=== PATIENT | male | born 1945 ===

== ENCOUNTER 2020-07-22 15:38 | Inpatient (IN) ==
[2020-07-23] MEDS ORDERED: Ipratropium 1 PUFF INHALER IH PRN (17:36)
[2020-07-23] MEDS ORDERED: Acetaminophen 325 MG TABLET PO PRN (17:36)
[2020-07-23] MEDS ORDERED: Ondansetron 4 MG/2 ML VIAL IVP PRN (17:38)
[2020-07-23] MEDS: QUEtiapine Fumarate 25 MG TABLET PO SCH (23:00)
[2020-07-23] MEDS: polyethylene glycoL 3350 17 GM POWD.PACK PO SCH (23:00)
[2020-07-24] MEDS ORDERED: Naloxone 0.4 MG/ML INJ IVP PRN (00:01)
[2020-07-24] MEDS: Melatonin 3 MG TABLET PO PRN ×2 (00:18→22:07)
[2020-07-24] MEDS: *HR* HYDROcodone/Acet 5/325 mg TABLET PO PRN ×2 (00:18→22:07)
[2020-07-24] MEDS: *HR* Enoxaparin 40 MG/0.4 ML SYRINGE SQ SCH (06:52)
[2020-07-24 07:30] LABS: Hemoglobin 9.2 g/dL (12.9-16.9); Mean Corpuscular HGB Conc 32.9 g/dL (31.6-35.5); Mean Corpuscular Hemoglobin 31.3 pg (28.0-33.3); Mean Corpuscular Volume 95.2 fL (83.0-100.0); Mean Platelet Volume 10.8 fL (9.4-12.4); Platelet Count 188 K/mcL (140-400); Red Blood Count 2.94 M/mcL (4.19-5.50); Red Cell Distribution Width 13.1 % (11.5-14.5); White Blood Count 5.7 K/mcL (4.3-11.1)
[2020-07-24 07:52] LABS: Calcium 8.6 mg/dL (8.6-10.3); Magnesium 2.2 mg/dL (1.6-2.6); Potassium 3.7 mEq/L (3.5-5.1)
[2020-07-24] MEDS ORDERED: Lactulose Oral Soln 20 GM/30 ML UDC PO PRN (08:00)
[2020-07-24] MEDS: PARoxetine 20 MG TABLET PO SCH (09:13)
[2020-07-24] MEDS: Aspirin 81 MG TAB.CHEW PO SCH (09:13)
[2020-07-24] MEDS: Sennosides/Docusate Sodium TABLET PO SCH ×2 (09:14→22:10)
[2020-07-24] MEDS: polyethylene glycoL 3350 17 GM POWD.PACK PO SCH (09:14)
[2020-07-24] MEDS: Finasteride 5 MG TABLET PO SCH (09:14)
[2020-07-24] MEDS: lisinopriL 20 MG TABLET PO SCH (09:14)
[2020-07-24] MEDS: *HR* Metformin 500 MG TABLET PO SCH ×2 (09:15→16:52)
[2020-07-24] MEDS: Dexamethasone 4 MG/ML VIAL IVP SCH (09:21)
[2020-07-24] MEDS: QUEtiapine Fumarate 25 MG TABLET PO SCH (22:07)
[2020-07-24] MEDS: levoFLOXacin 750 MG/150 ML 750 MG/150 ML BAG IVPB SCH (22:09)
[2020-07-25] MEDS: *HR* Enoxaparin 40 MG/0.4 ML SYRINGE SQ SCH (06:35)
[2020-07-25 06:43] LABS: Hematocrit 29.2 % (37.5-50.1); Hemoglobin 9.3 g/dL (12.9-16.9); Mean Corpuscular HGB Conc 31.8 g/dL (31.6-35.5); Mean Corpuscular Hemoglobin 30.7 pg (28.0-33.3); Mean Corpuscular Volume 96.4 fL (83.0-100.0); Mean Platelet Volume 10.2 fL (9.4-12.4); Platelet Count 197 K/mcL (140-400); Red Blood Count 3.03 M/mcL (4.19-5.50); Red Cell Distribution Width 13.4 % (11.5-14.5); White Blood Count 7.1 K/mcL (4.3-11.1)
[2020-07-25 07:13] LABS: Bilirubin,Total 0.5 mg/dL (0.3-1.0); Calcium 8.8 mg/dL (8.6-10.3); Magnesium 2.6 mg/dL (1.6-2.6)
[2020-07-25] MEDS: PARoxetine 20 MG TABLET PO SCH (08:55)
[2020-07-25] MEDS: Finasteride 5 MG TABLET PO SCH (08:56)
[2020-07-25] MEDS: *HR* Metformin 500 MG TABLET PO SCH ×2 (08:56→16:58)
[2020-07-25] MEDS: Aspirin 81 MG TAB.CHEW PO SCH (08:56)
[2020-07-25] MEDS: lisinopriL 20 MG TABLET PO SCH (08:56)
[2020-07-25] MEDS: Dexamethasone 4 MG/ML VIAL IVP SCH (08:56)
[2020-07-25] MEDS: Sennosides/Docusate Sodium TABLET PO SCH (08:57)
[2020-07-25] MEDS: polyethylene glycoL 3350 17 GM POWD.PACK PO SCH (08:57)
[2020-07-25] MEDS: 0.9 % Sodium Chloride 1,000 ML IVC SCH ×2 (13:02→21:06)
[2020-07-25] MEDS: *HR* HYDROcodone/Acet 5/325 mg TABLET PO PRN (21:05)
[2020-07-25] MEDS: QUEtiapine Fumarate 25 MG TABLET PO SCH (21:05)
[2020-07-25] MEDS: Melatonin 3 MG TABLET PO PRN (21:06)
[2020-07-26] MEDS: *HR* HYDROcodone/Acet 5/325 mg TABLET PO PRN ×2 (05:43→20:43)
[2020-07-26] MEDS: *HR* Enoxaparin 40 MG/0.4 ML SYRINGE SQ SCH (05:43)
[2020-07-26 07:58] LABS: Hematocrit 25.8 % (37.5-50.1); Hemoglobin 8.2 g/dL (12.9-16.9); Mean Corpuscular HGB Conc 31.8 g/dL (31.6-35.5); Mean Corpuscular Hemoglobin 30.9 pg (28.0-33.3); Mean Corpuscular Volume 97.4 fL (83.0-100.0); Mean Platelet Volume 10.4 fL (9.4-12.4); Platelet Count 165 K/mcL (140-400); Red Blood Count 2.65 M/mcL (4.19-5.50); Red Cell Distribution Width 13.4 % (11.5-14.5)
[2020-07-26 08:14] LABS: Calcium 7.8 mg/dL (8.6-10.3)
[2020-07-26] MEDS: *HR* Metformin 500 MG TABLET PO SCH ×2 (10:09→16:20)
[2020-07-26] MEDS: Finasteride 5 MG TABLET PO SCH (10:09)
[2020-07-26] MEDS: Sennosides/Docusate Sodium TABLET PO SCH ×2 (10:10→20:44)
[2020-07-26] MEDS: Aspirin 81 MG TAB.CHEW PO SCH (10:10)
[2020-07-26] MEDS: PARoxetine 20 MG TABLET PO SCH (10:10)
[2020-07-26] MEDS: Dexamethasone 4 MG/ML VIAL IVP SCH (10:12)
[2020-07-26] MEDS: QUEtiapine Fumarate 25 MG TABLET PO SCH (20:44)
[2020-07-26] MEDS: levoFLOXacin 750 MG/150 ML 750 MG/150 ML BAG IVPB SCH ×2 (20:46→23:10)
[2020-07-26] MEDS: Melatonin 3 MG TABLET PO PRN (21:21)
[2020-07-26] MEDS ORDERED: levoFLOXacin 500 MG TABLET PO ONE (22:40)
[2020-07-27] MEDS ORDERED: hydrALAZINE 25 MG TABLET PO ONE ×2 (00:23→02:21)
[2020-07-27] MEDS ORDERED: cloNIDine HCL 0.1 MG TABLET PO ONE (05:30)
[2020-07-27] MEDS: *HR* Enoxaparin 40 MG/0.4 ML SYRINGE SQ SCH (05:49)
[2020-07-27 07:10] LABS: Basophils % 0.2 %; Eosinophils # 0.1 K/mcL (0.0-0.6); Eosinophils % 1.1 %; Hematocrit 25.7 % (37.5-50.1); Hemoglobin 8.3 g/dL (12.9-16.9); Immature Granulocytes % 0.5 % (0-4); Lymphocytes # 0.5 K/mcL (0.6-4.6); Lymphocytes % 9.7 %; Mean Corpuscular HGB Conc 32.3 g/dL (31.6-35.5); Mean Corpuscular Hemoglobin 31.2 pg (28.0-33.3); Mean Corpuscular Volume 96.6 fL (83.0-100.0); Mean Platelet Volume 10.5 fL (9.4-12.4); Monocytes # 0.4 K/mcL (0.0-1.3); Monocytes % 7.6 %; Neutrophils # 4.5 K/mcL (1.6-8.9); Platelet Count 162 K/mcL (140-400); Red Blood Count 2.66 M/mcL (4.19-5.50); Red Cell Distribution Width 13.5 % (11.5-14.5); Segmented Neutrophils % 80.9 %; White Blood Count 5.5 K/mcL (4.3-11.1)
[2020-07-27 07:34] LABS: BUN/Creatinine Ratio 21 (6-26); Blood Urea Nitrogen 27 mg/dL (8-23); Calcium 7.9 mg/dL (8.6-10.3); Carbon Dioxide 28 mEq/L (23-29); Chloride 106 mEq/L (98-107); Glucose 86 mg/dL (70-105); Osmolality,Calculated 292 (280-300); Potassium 4.1 mEq/L (3.5-5.1); Sodium 139 mEq/L (136-145); eGFR For African Americans > 60 (> 60); eGFR For Non-African Americans 56 (> 60)
[2020-07-27] MEDS ORDERED: Ondansetron ODT 4 MG TAB.RAPDIS SL PRN ×2 (07:50→08:00)
[2020-07-27] MEDS ORDERED: cloNIDine HCL 0.1 MG TABLET PO PRN (08:00)
[2020-07-27] MEDS: predniSONE 20 MG TABLET PO SCH (08:31)
[2020-07-27] MEDS: *HR* Metformin 500 MG TABLET PO SCH ×2 (08:31→17:00)
[2020-07-27] MEDS: Aspirin 81 MG TAB.CHEW PO SCH (08:31)
[2020-07-27] MEDS: PARoxetine 20 MG TABLET PO SCH (08:32)
[2020-07-27] MEDS: Sennosides/Docusate Sodium TABLET PO SCH ×2 (08:32→20:29)
[2020-07-27] MEDS: Finasteride 5 MG TABLET PO SCH (08:32)
[2020-07-27] MEDS: lisinopriL 5 MG TABLET PO SCH ×2 (08:32→20:29)
[2020-07-27 09:59] LABS: % Iron Saturation 26 % (20-55); Iron 64 mcg/dL (65-175); Transferrin 175 mg/dL (203-362)
[2020-07-27 10:17] LABS: Ferritin 148 ng/mL (20-250)
[2020-07-27 10:22] LABS: Folate 15.6 ng/mL (3.0-16.0)
[2020-07-27] MEDS: *HR* HYDROcodone/Acet 5/325 mg TABLET PO PRN (20:28)
[2020-07-27] MEDS: QUEtiapine Fumarate 25 MG TABLET PO SCH (20:28)
[2020-07-27] MEDS: Melatonin 3 MG TABLET PO PRN (21:46)
[2020-07-28] MEDS: *HR* Enoxaparin 40 MG/0.4 ML SYRINGE SQ SCH (05:43)
[2020-07-28 07:52] VITALS: BP 148/91
[2020-07-28] MEDS: PARoxetine 20 MG TABLET PO SCH (08:25)
[2020-07-28] MEDS: Sennosides/Docusate Sodium TABLET PO SCH (08:25)
[2020-07-28] MEDS: lisinopriL 5 MG TABLET PO SCH (08:25)
[2020-07-28] MEDS: Aspirin 81 MG TAB.CHEW PO SCH (08:26)
[2020-07-28] MEDS: *HR* Metformin 500 MG TABLET PO SCH (08:26)
[2020-07-28] MEDS: predniSONE 20 MG TABLET PO SCH (08:26)
[2020-07-28] MEDS: Finasteride 5 MG TABLET PO SCH (08:26)
== END 2020-07-28 10:59 | disposition other institution (70) | DRG 177 ==
LOC: INPPIK 07-23 19:50
PROVIDERS: ADMIT Family Medicine; ATTEND Family Medicine

== ENCOUNTER 2020-07-28 10:43 | Inpatient (IN) ==
[2020-07-28] MEDS ORDERED: Ipratropium 1 PUFF INHALER IH PRN (13:22)
[2020-07-28] MEDS ORDERED: polyethylene glycoL 3350 17 GM POWD.PACK PO PRN (13:22)
[2020-07-28] MEDS: *HR* Metformin 500 MG TABLET PO SCH (17:16)
[2020-07-28] MEDS: QUEtiapine Fumarate 25 MG TABLET PO SCH (21:19)
[2020-07-28] MEDS: Acetaminophen 325 MG TABLET PO PRN (21:19)
[2020-07-29] MEDS ORDERED: *HR* HYDROcodone/Acet 5/325 mg TABLET PO ONE ×2 (00:25→01:00)
[2020-07-29] MEDS ORDERED: Melatonin 3 MG TABLET PO ONE (00:25)
[2020-07-29] MEDS: *HR* Enoxaparin 40 MG/0.4 ML SYRINGE SQ SCH (05:58)
[2020-07-29] MEDS ORDERED: *HR* Labetalol 20 MG/4 ML SYRINGE IVP ONE (06:39)
[2020-07-29 07:17] LABS: Basophils % 0.2 %; Eosinophils # 0.1 K/mcL (0.0-0.6); Eosinophils % 1.7 %; Hematocrit 27.6 % (37.5-50.1); Hemoglobin 8.8 g/dL (12.9-16.9); Immature Granulocytes % 0.6 % (0-4); Lymphocytes # 0.7 K/mcL (0.6-4.6); Lymphocytes % 12.6 %; Mean Corpuscular HGB Conc 31.9 g/dL (31.6-35.5); Mean Corpuscular Hemoglobin 30.8 pg (28.0-33.3); Mean Corpuscular Volume 96.5 fL (83.0-100.0); Mean Platelet Volume 11.1 fL (9.4-12.4); Monocytes # 0.4 K/mcL (0.0-1.3); Monocytes % 7.7 %; Neutrophils # 4.1 K/mcL (1.6-8.9); Platelet Count 177 K/mcL (140-400); Red Blood Count 2.86 M/mcL (4.19-5.50); Red Cell Distribution Width 13.9 % (11.5-14.5); Segmented Neutrophils % 77.2 %; White Blood Count 5.3 K/mcL (4.3-11.1)
[2020-07-29 07:24] LABS: BUN/Creatinine Ratio 18 (6-26); Blood Urea Nitrogen 22 mg/dL (8-23); Calcium 8.5 mg/dL (8.6-10.3); Carbon Dioxide 29 mEq/L (23-29); Chloride 104 mEq/L (98-107); Glucose 75 mg/dL (70-105); Osmolality,Calculated 290 (280-300); Potassium 3.9 mEq/L (3.5-5.1); Sodium 139 mEq/L (136-145); eGFR For African Americans > 60 (> 60); eGFR For Non-African Americans 58 (> 60)
[2020-07-29] MEDS: Finasteride 5 MG TABLET PO SCH (08:30)
[2020-07-29] MEDS: *HR* Metformin 500 MG TABLET PO SCH ×2 (08:31→16:28)
[2020-07-29] MEDS: PARoxetine 20 MG TABLET PO SCH (08:31)
[2020-07-29] MEDS: Aspirin 81 MG TAB.CHEW PO SCH (08:31)
[2020-07-29] MEDS ORDERED: lisinopriL 5 MG TABLET PO SCH (09:00)
[2020-07-29] MEDS: Melatonin 3 MG TABLET PO PRN (21:42)
[2020-07-29] MEDS: QUEtiapine Fumarate 25 MG TABLET PO SCH (21:42)
[2020-07-29] MEDS: lisinopriL 10 MG TABLET PO SCH (21:42)
[2020-07-29] MEDS: *HR* HYDROcodone/Acet 5/325 mg TABLET PO PRN (21:43)
[2020-07-30] MEDS: *HR* Enoxaparin 40 MG/0.4 ML SYRINGE SQ SCH (06:16)
[2020-07-30] MEDS ORDERED: Saline Nasal Spray 44 ML BOTTLE NS PRN (06:27)
[2020-07-30] MEDS: Aspirin 81 MG TAB.CHEW PO SCH (09:00)
[2020-07-30] MEDS: *HR* Metformin 500 MG TABLET PO SCH ×2 (09:00→17:12)
[2020-07-30] MEDS: lisinopriL 10 MG TABLET PO SCH ×2 (09:01→19:23)
[2020-07-30] MEDS: Finasteride 5 MG TABLET PO SCH (09:01)
[2020-07-30] MEDS: PARoxetine 20 MG TABLET PO SCH (09:01)
[2020-07-30] MEDS: QUEtiapine Fumarate 25 MG TABLET PO SCH (19:24)
[2020-07-30] MEDS: Melatonin 3 MG TABLET PO PRN (20:42)
[2020-07-30] MEDS: *HR* HYDROcodone/Acet 5/325 mg TABLET PO PRN (20:42)
[2020-07-31] MEDS: PARoxetine 20 MG TABLET PO SCH (08:58)
[2020-07-31] MEDS: Finasteride 5 MG TABLET PO SCH (08:58)
[2020-07-31] MEDS: *HR* Metformin 500 MG TABLET PO SCH ×2 (08:58→17:08)
[2020-07-31] MEDS: lisinopriL 10 MG TABLET PO SCH ×2 (08:58→20:06)
[2020-07-31] MEDS: Aspirin 81 MG TAB.CHEW PO SCH (08:58)
[2020-07-31] MEDS: *HR* Enoxaparin 40 MG/0.4 ML SYRINGE SQ SCH (08:59)
[2020-07-31] MEDS: QUEtiapine Fumarate 25 MG TABLET PO SCH (20:06)
[2020-07-31] MEDS: Melatonin 3 MG TABLET PO PRN (20:07)
[2020-07-31] MEDS: *HR* HYDROcodone/Acet 5/325 mg TABLET PO PRN (20:16)
[2020-08-01] MEDS: *HR* Enoxaparin 40 MG/0.4 ML SYRINGE SQ SCH (05:33)
[2020-08-01 07:21] LABS: Hematocrit 28.6 % (37.5-50.1); Hemoglobin 9.1 g/dL (12.9-16.9); Mean Corpuscular HGB Conc 31.8 g/dL (31.6-35.5); Mean Corpuscular Hemoglobin 31.2 pg (28.0-33.3); Mean Corpuscular Volume 97.9 fL (83.0-100.0); Platelet Count 169 K/mcL (140-400); Red Blood Count 2.92 M/mcL (4.19-5.50); Red Cell Distribution Width 14.6 % (11.5-14.5); White Blood Count 4.2 K/mcL (4.3-11.1)
[2020-08-01 07:55] LABS: BUN/Creatinine Ratio 16 (6-26); Blood Urea Nitrogen 18 mg/dL (8-23); Calcium 8.5 mg/dL (8.6-10.3); Carbon Dioxide 31 mEq/L (23-29); Chloride 102 mEq/L (98-107); Glucose 72 mg/dL (70-105); Osmolality,Calculated 286 (280-300); Potassium 3.6 mEq/L (3.5-5.1); Sodium 138 mEq/L (136-145); eGFR For African Americans > 60 (> 60); eGFR For Non-African Americans > 60 (> 60)
[2020-08-01] MEDS: Finasteride 5 MG TABLET PO SCH (09:00)
[2020-08-01] MEDS: PARoxetine 20 MG TABLET PO SCH (09:01)
[2020-08-01] MEDS: lisinopriL 10 MG TABLET PO SCH ×3 (09:01→19:56)
[2020-08-01] MEDS: *HR* Metformin 500 MG TABLET PO SCH ×2 (09:01→17:22)
[2020-08-01] MEDS: Aspirin 81 MG TAB.CHEW PO SCH (09:01)
[2020-08-01 09:32] LABS: Ferritin 87 ng/mL (20-250)
[2020-08-01 10:14] LABS: C-Reactive Protein 9 mg/L (Less than 10)
[2020-08-01] MEDS: *HR* HYDROcodone/Acet 5/325 mg TABLET PO PRN (19:51)
[2020-08-01] MEDS: QUEtiapine Fumarate 25 MG TABLET PO SCH (19:52)
[2020-08-02] MEDS: *HR* Enoxaparin 40 MG/0.4 ML SYRINGE SQ SCH (05:29)
[2020-08-02] MEDS: *HR* Metformin 500 MG TABLET PO SCH ×2 (10:03→16:37)
[2020-08-02] MEDS: lisinopriL 10 MG TABLET PO SCH ×2 (10:04→20:53)
[2020-08-02] MEDS: Aspirin 81 MG TAB.CHEW PO SCH (10:04)
[2020-08-02] MEDS: PARoxetine 20 MG TABLET PO SCH (10:04)
[2020-08-02] MEDS: Finasteride 5 MG TABLET PO SCH (10:04)
[2020-08-02] MEDS: levoFLOXacin 500 MG TABLET PO SCH (15:43)
[2020-08-02] MEDS: Melatonin 3 MG TABLET PO PRN (20:54)
[2020-08-02] MEDS: *HR* HYDROcodone/Acet 5/325 mg TABLET PO PRN (20:54)
[2020-08-02] MEDS: QUEtiapine Fumarate 25 MG TABLET PO SCH (20:55)
[2020-08-03] MEDS: *HR* Enoxaparin 40 MG/0.4 ML SYRINGE SQ SCH (05:27)
[2020-08-03] MEDS: *HR* Metformin 500 MG TABLET PO SCH ×2 (09:15→17:20)
[2020-08-03] MEDS: lisinopriL 10 MG TABLET PO SCH ×2 (09:15→21:41)
[2020-08-03] MEDS: Aspirin 81 MG TAB.CHEW PO SCH (09:15)
[2020-08-03] MEDS: levoFLOXacin 500 MG TABLET PO SCH (09:16)
[2020-08-03] MEDS: Finasteride 5 MG TABLET PO SCH (09:16)
[2020-08-03] MEDS: PARoxetine 20 MG TABLET PO SCH (09:16)
[2020-08-03] MEDS: *HR* HYDROcodone/Acet 5/325 mg TABLET PO PRN ×2 (09:23→21:47)
[2020-08-03] MEDS ORDERED: cloNIDine HCL 0.1 MG TABLET PO ONE (14:59)
[2020-08-03] MEDS: QUEtiapine Fumarate 25 MG TABLET PO SCH (21:42)
[2020-08-03] MEDS: Melatonin 3 MG TABLET PO PRN (21:47)
[2020-08-04] MEDS: Acetaminophen 325 MG TABLET PO PRN (05:05)
[2020-08-04] MEDS: *HR* Enoxaparin 40 MG/0.4 ML SYRINGE SQ SCH (05:06)
[2020-08-04] MEDS: PARoxetine 20 MG TABLET PO SCH (07:56)
[2020-08-04] MEDS: Aspirin 81 MG TAB.CHEW PO SCH (07:56)
[2020-08-04] MEDS: Finasteride 5 MG TABLET PO SCH (07:56)
[2020-08-04] MEDS: levoFLOXacin 500 MG TABLET PO SCH (07:56)
[2020-08-04] MEDS: *HR* Metformin 500 MG TABLET PO SCH ×2 (07:56→16:48)
[2020-08-04] MEDS: lisinopriL 10 MG TABLET PO SCH ×2 (07:56→21:29)
[2020-08-04 09:21] LABS: Basophils % 0.3 %; Eosinophils # 0.1 K/mcL (0.0-0.6); Eosinophils % 2.8 %; Hematocrit 30.4 % (37.5-50.1); Hemoglobin 9.7 g/dL (12.9-16.9); Immature Granulocytes % 0.3 % (0-4); Lymphocytes # 0.6 K/mcL (0.6-4.6); Lymphocytes % 15.9 %; Mean Corpuscular HGB Conc 31.9 g/dL (31.6-35.5); Mean Corpuscular Hemoglobin 31.4 pg (28.0-33.3); Mean Corpuscular Volume 98.4 fL (83.0-100.0); Monocytes # 0.3 K/mcL (0.0-1.3); Monocytes % 7.6 %; Neutrophils # 2.6 K/mcL (1.6-8.9); Platelet Count 137 K/mcL (140-400); Red Blood Count 3.09 M/mcL (4.19-5.50); Red Cell Distribution Width 14.5 % (11.5-14.5); Segmented Neutrophils % 73.1 %; White Blood Count 3.5 K/mcL (4.3-11.1)
[2020-08-04 10:49] LABS: BUN/Creatinine Ratio 12 (6-26); Blood Urea Nitrogen 14 mg/dL (8-23); Calcium 8.4 mg/dL (8.6-10.3); Carbon Dioxide 32 mEq/L (23-29); Chloride 100 mEq/L (98-107); Glucose 111 mg/dL (70-105); Osmolality,Calculated 289 (280-300); Potassium 3.4 mEq/L (3.5-5.1); Sodium 139 mEq/L (136-145); eGFR For African Americans > 60 (> 60); eGFR For Non-African Americans 59 (> 60)
[2020-08-04 18:25] LABS: C-Reactive Protein 8 mg/L (Less than 10)
[2020-08-04] MEDS: predniSONE 20 MG TABLET PO SCH (19:09)
[2020-08-04] MEDS: Melatonin 3 MG TABLET PO PRN (21:29)
[2020-08-04] MEDS: QUEtiapine Fumarate 25 MG TABLET PO SCH (21:29)
[2020-08-04] MEDS: *HR* HYDROcodone/Acet 5/325 mg TABLET PO PRN (21:29)
[2020-08-05] MEDS: *HR* Enoxaparin 40 MG/0.4 ML SYRINGE SQ SCH (05:28)
[2020-08-05] MEDS: *HR* Metformin 500 MG TABLET PO SCH ×2 (07:57→16:38)
[2020-08-05] MEDS: predniSONE 20 MG TABLET PO SCH ×2 (07:57→16:37)
[2020-08-05] MEDS: lisinopriL 10 MG TABLET PO SCH ×2 (09:35→20:22)
[2020-08-05] MEDS: Finasteride 5 MG TABLET PO SCH (09:35)
[2020-08-05] MEDS: Aspirin 81 MG TAB.CHEW PO SCH (09:35)
[2020-08-05] MEDS: levoFLOXacin 500 MG TABLET PO SCH (09:36)
[2020-08-05] MEDS: PARoxetine 20 MG TABLET PO SCH (09:36)
[2020-08-05] MEDS ORDERED: cloNIDine HCL 0.1 MG TABLET PO ONE (19:09)
[2020-08-05] MEDS ORDERED: cloNIDine HCL 0.1 MG TABLET PO PRN (19:25)
[2020-08-05] MEDS: QUEtiapine Fumarate 25 MG TABLET PO SCH (20:22)
[2020-08-05] MEDS: *HR* HYDROcodone/Acet 5/325 mg TABLET PO PRN (20:22)
[2020-08-05] MEDS: Melatonin 3 MG TABLET PO PRN (20:23)
[2020-08-06] MEDS: *HR* Enoxaparin 40 MG/0.4 ML SYRINGE SQ SCH (06:11)
[2020-08-06] MEDS: PARoxetine 20 MG TABLET PO SCH (07:52)
[2020-08-06] MEDS: Finasteride 5 MG TABLET PO SCH (07:52)
[2020-08-06] MEDS: Aspirin 81 MG TAB.CHEW PO SCH (07:53)
[2020-08-06] MEDS: predniSONE 20 MG TABLET PO SCH ×2 (07:53→15:40)
[2020-08-06] MEDS: *HR* Metformin 500 MG TABLET PO SCH ×2 (07:53→15:40)
[2020-08-06] MEDS: lisinopriL 10 MG TABLET PO SCH ×2 (07:53→20:09)
[2020-08-06] MEDS ORDERED: Perflutren Lipid Microsphere 1.3 ML in 0.9 % Sodium Chloride 8.7 ML IVP PRN (14:45)
[2020-08-06] MEDS: QUEtiapine Fumarate 25 MG TABLET PO SCH (20:09)
[2020-08-06] MEDS: Melatonin 3 MG TABLET PO PRN (20:12)
[2020-08-06] MEDS: *HR* HYDROcodone/Acet 5/325 mg TABLET PO PRN (20:13)
[2020-08-07 06:07] LABS: Hematocrit 28.7 % (37.5-50.1); Hemoglobin 9.3 g/dL (12.9-16.9); Immature Granulocytes % 0.8 % (0-4); Lymphocytes # 0.6 K/mcL (0.6-4.6); Lymphocytes % 7.9 %; Mean Corpuscular HGB Conc 32.4 g/dL (31.6-35.5); Mean Corpuscular Hemoglobin 31.1 pg (28.0-33.3); Mean Platelet Volume 10.9 fL (9.4-12.4); Monocytes # 0.4 K/mcL (0.0-1.3); Monocytes % 5.7 %; Neutrophils # 6.6 K/mcL (1.6-8.9); Platelet Count 146 K/mcL (140-400); Red Blood Count 2.99 M/mcL (4.19-5.50); Red Cell Distribution Width 14.6 % (11.5-14.5); Segmented Neutrophils % 85.6 %; White Blood Count 7.7 K/mcL (4.3-11.1)
[2020-08-07 06:25] LABS: BUN/Creatinine Ratio 27 (6-26); Blood Urea Nitrogen 33 mg/dL (8-23); Calcium 8.3 mg/dL (8.6-10.3); Carbon Dioxide 31 mEq/L (23-29); Chloride 101 mEq/L (98-107); Glucose 136 mg/dL (70-105); Osmolality,Calculated 299 (280-300); Potassium 3.5 mEq/L (3.5-5.1); Sodium 140 mEq/L (136-145); eGFR For African Americans > 60 (> 60); eGFR For Non-African Americans 58 (> 60)
[2020-08-07] MEDS: *HR* Enoxaparin 40 MG/0.4 ML SYRINGE SQ SCH (07:20)
[2020-08-07] MEDS: Finasteride 5 MG TABLET PO SCH (08:47)
[2020-08-07] MEDS: predniSONE 20 MG TABLET PO SCH (08:47)
[2020-08-07] MEDS: *HR* Metformin 500 MG TABLET PO SCH ×2 (08:47→16:38)
[2020-08-07] MEDS: PARoxetine 20 MG TABLET PO SCH (08:47)
[2020-08-07] MEDS: lisinopriL 10 MG TABLET PO SCH ×2 (08:48→19:57)
[2020-08-07] MEDS: Aspirin 81 MG TAB.CHEW PO SCH (08:48)
[2020-08-07 09:14] LABS: C-Reactive Protein < 5 mg/L (Less than 10)
[2020-08-07] MEDS: Acetaminophen 325 MG TABLET PO PRN (19:57)
[2020-08-07] MEDS: QUEtiapine Fumarate 25 MG TABLET PO SCH (19:57)
[2020-08-07] MEDS: Melatonin 3 MG TABLET PO PRN (19:57)
[2020-08-08] MEDS: *HR* Enoxaparin 40 MG/0.4 ML SYRINGE SQ SCH (05:14)
[2020-08-08] MEDS: Finasteride 5 MG TABLET PO SCH (07:34)
[2020-08-08] MEDS: lisinopriL 10 MG TABLET PO SCH ×2 (07:34→19:48)
[2020-08-08] MEDS: Aspirin 81 MG TAB.CHEW PO SCH (07:35)
[2020-08-08] MEDS: PARoxetine 20 MG TABLET PO SCH (07:35)
[2020-08-08] MEDS: *HR* Metformin 500 MG TABLET PO SCH ×2 (07:35→16:32)
[2020-08-08] MEDS: Acetaminophen 325 MG TABLET PO PRN (07:39)
[2020-08-08] MEDS: *HR* HYDROcodone/Acet 5/325 mg TABLET PO PRN (19:48)
[2020-08-08] MEDS: QUEtiapine Fumarate 25 MG TABLET PO SCH (19:48)
[2020-08-08] MEDS: Melatonin 3 MG TABLET PO PRN (19:50)
[2020-08-09] MEDS: *HR* Enoxaparin 40 MG/0.4 ML SYRINGE SQ SCH (05:37)
[2020-08-09] MEDS: *HR* HYDROcodone/Acet 5/325 mg TABLET PO PRN ×2 (05:37→20:06)
[2020-08-09] MEDS: Aspirin 81 MG TAB.CHEW PO SCH (07:44)
[2020-08-09] MEDS: PARoxetine 20 MG TABLET PO SCH (07:44)
[2020-08-09] MEDS: *HR* Metformin 500 MG TABLET PO SCH ×2 (07:44→16:40)
[2020-08-09] MEDS: lisinopriL 10 MG TABLET PO SCH ×2 (07:45→20:06)
[2020-08-09] MEDS: Finasteride 5 MG TABLET PO SCH (07:45)
[2020-08-09] MEDS: Acetaminophen 325 MG TABLET PO PRN (07:52)
[2020-08-09] MEDS: Melatonin 3 MG TABLET PO PRN (20:06)
[2020-08-09] MEDS: QUEtiapine Fumarate 25 MG TABLET PO SCH (20:06)
[2020-08-09] MEDS ORDERED: 0.9 % Sodium Chloride 1,000 ML IV SCH (22:30)
[2020-08-10] MEDS: *HR* Enoxaparin 40 MG/0.4 ML SYRINGE SQ SCH (05:33)
[2020-08-10] MEDS: *HR* HYDROcodone/Acet 5/325 mg TABLET PO PRN ×2 (05:34→20:36)
[2020-08-10] MEDS: *HR* Metformin 500 MG TABLET PO SCH ×2 (10:56→17:42)
[2020-08-10] MEDS: PARoxetine 20 MG TABLET PO SCH (10:57)
[2020-08-10] MEDS: Aspirin 81 MG TAB.CHEW PO SCH (10:57)
[2020-08-10] MEDS: Finasteride 5 MG TABLET PO SCH (10:57)
[2020-08-10] MEDS: lisinopriL 10 MG TABLET PO SCH (13:08)
[2020-08-10] MEDS: carvediloL 6.25 MG TABLET PO SCH (17:41)
[2020-08-10] MEDS: QUEtiapine Fumarate 25 MG TABLET PO SCH (20:36)
[2020-08-10] MEDS: Melatonin 3 MG TABLET PO PRN (20:37)
[2020-08-11] MEDS: *HR* Enoxaparin 40 MG/0.4 ML SYRINGE SQ SCH (06:07)
[2020-08-11 06:48] LABS: Hematocrit 28.5 % (37.5-50.1); Hemoglobin 9.4 g/dL (12.9-16.9); Mean Corpuscular Volume 96.9 fL (83.0-100.0); Mean Platelet Volume 11.2 fL (9.4-12.4); Platelet Count 137 K/mcL (140-400); Red Blood Count 2.94 M/mcL (4.19-5.50); Red Cell Distribution Width 14.7 % (11.5-14.5); White Blood Count 3.2 K/mcL (4.3-11.1)
[2020-08-11 07:13] LABS: BUN/Creatinine Ratio 16 (6-26); Blood Urea Nitrogen 17 mg/dL (8-23); Calcium 8.2 mg/dL (8.6-10.3); Carbon Dioxide 30 mEq/L (23-29); Chloride 103 mEq/L (98-107); Glucose 81 mg/dL (70-105); Osmolality,Calculated 291 (280-300); Potassium 3.4 mEq/L (3.5-5.1); Sodium 140 mEq/L (136-145); eGFR For African Americans > 60 (> 60); eGFR For Non-African Americans > 60 (> 60)
[2020-08-11] MEDS: carvediloL 6.25 MG TABLET PO SCH (08:17)
[2020-08-11] MEDS: PARoxetine 20 MG TABLET PO SCH (08:17)
[2020-08-11] MEDS: Finasteride 5 MG TABLET PO SCH (08:18)
[2020-08-11] MEDS: Aspirin 81 MG TAB.CHEW PO SCH (08:18)
[2020-08-11] MEDS: *HR* Metformin 500 MG TABLET PO SCH ×2 (08:18→17:16)
[2020-08-11] MEDS: QUEtiapine Fumarate 25 MG TABLET PO SCH (20:25)
[2020-08-11] MEDS: *HR* HYDROcodone/Acet 5/325 mg TABLET PO PRN (20:25)
[2020-08-11] MEDS: amLODIPine 5 MG TABLET PO SCH (20:25)
[2020-08-11] MEDS: Melatonin 3 MG TABLET PO PRN (20:26)
[2020-08-12] MEDS: *HR* Enoxaparin 40 MG/0.4 ML SYRINGE SQ SCH (05:43)
[2020-08-12] MEDS: PARoxetine 20 MG TABLET PO SCH (08:16)
[2020-08-12] MEDS: Finasteride 5 MG TABLET PO SCH (08:16)
[2020-08-12] MEDS: *HR* Metformin 500 MG TABLET PO SCH ×2 (08:16→19:20)
[2020-08-12] MEDS: amLODIPine 5 MG TABLET PO SCH ×2 (08:16→20:11)
[2020-08-12] MEDS: Aspirin 81 MG TAB.CHEW PO SCH (08:16)
[2020-08-12] MEDS: QUEtiapine Fumarate 25 MG TABLET PO SCH (20:11)
[2020-08-12] MEDS: Melatonin 3 MG TABLET PO PRN (20:11)
[2020-08-12] MEDS: *HR* HYDROcodone/Acet 5/325 mg TABLET PO PRN (20:11)
[2020-08-13] MEDS: *HR* Enoxaparin 40 MG/0.4 ML SYRINGE SQ SCH (05:44)
[2020-08-13] MEDS: *HR* Metformin 500 MG TABLET PO SCH ×2 (08:07→16:15)
[2020-08-13] MEDS: Aspirin 81 MG TAB.CHEW PO SCH (08:08)
[2020-08-13] MEDS: amLODIPine 5 MG TABLET PO SCH ×2 (08:09→20:26)
[2020-08-13] MEDS: PARoxetine 20 MG TABLET PO SCH (08:10)
[2020-08-13] MEDS: Finasteride 5 MG TABLET PO SCH (08:11)
[2020-08-13] MEDS: QUEtiapine Fumarate 25 MG TABLET PO SCH (20:26)
[2020-08-13] MEDS: *HR* HYDROcodone/Acet 5/325 mg TABLET PO PRN (20:29)
[2020-08-13] MEDS: Melatonin 3 MG TABLET PO PRN (20:29)
[2020-08-14] MEDS: *HR* Enoxaparin 40 MG/0.4 ML SYRINGE SQ SCH (06:14)
[2020-08-14] MEDS: *HR* HYDROcodone/Acet 5/325 mg TABLET PO PRN ×2 (07:07→20:18)
[2020-08-14] MEDS: Aspirin 81 MG TAB.CHEW PO SCH (09:49)
[2020-08-14] MEDS: *HR* Metformin 500 MG TABLET PO SCH ×2 (09:49→15:56)
[2020-08-14] MEDS: amLODIPine 5 MG TABLET PO SCH ×2 (09:49→20:18)
[2020-08-14] MEDS: Finasteride 5 MG TABLET PO SCH (09:50)
[2020-08-14] MEDS: PARoxetine 20 MG TABLET PO SCH (09:50)
[2020-08-14] MEDS: QUEtiapine Fumarate 25 MG TABLET PO SCH (20:18)
[2020-08-14] MEDS: Melatonin 3 MG TABLET PO PRN (20:18)
[2020-08-15] MEDS: *HR* Enoxaparin 40 MG/0.4 ML SYRINGE SQ SCH (05:43)
[2020-08-15] MEDS: *HR* Metformin 500 MG TABLET PO SCH ×2 (08:16→16:37)
[2020-08-15] MEDS: Aspirin 81 MG TAB.CHEW PO SCH (08:16)
[2020-08-15] MEDS: Finasteride 5 MG TABLET PO SCH (08:16)
[2020-08-15] MEDS: amLODIPine 5 MG TABLET PO SCH ×2 (08:16→20:39)
[2020-08-15] MEDS: PARoxetine 20 MG TABLET PO SCH (08:16)
[2020-08-15] MEDS: Acetaminophen 325 MG TABLET PO PRN (08:32)
[2020-08-15] MEDS: Melatonin 3 MG TABLET PO PRN (20:38)
[2020-08-15] MEDS: *HR* HYDROcodone/Acet 5/325 mg TABLET PO PRN (20:39)
[2020-08-15] MEDS: QUEtiapine Fumarate 25 MG TABLET PO SCH (20:39)
[2020-08-16 05:49] LABS: Basophils % 0.6 %; Eosinophils # 0.1 K/mcL (0.0-0.6); Eosinophils % 3.1 %; Hemoglobin 9.6 g/dL (12.9-16.9); Immature Granulocytes % 0.3 % (0-4); Lymphocytes # 0.7 K/mcL (0.6-4.6); Lymphocytes % 19.7 %; Mean Corpuscular Hemoglobin 31.6 pg (28.0-33.3); Mean Corpuscular Volume 98.7 fL (83.0-100.0); Mean Platelet Volume 10.5 fL (9.4-12.4); Monocytes # 0.5 K/mcL (0.0-1.3); Monocytes % 14.1 %; Neutrophils # 2.2 K/mcL (1.6-8.9); Platelet Count 175 K/mcL (140-400); Red Blood Count 3.04 M/mcL (4.19-5.50); Red Cell Distribution Width 14.4 % (11.5-14.5); Segmented Neutrophils % 62.2 %; White Blood Count 3.6 K/mcL (4.3-11.1)
[2020-08-16 06:16] LABS: BUN/Creatinine Ratio 11 (6-26); Blood Urea Nitrogen 12 mg/dL (8-23); Calcium 8.3 mg/dL (8.6-10.3); Carbon Dioxide 33 mEq/L (23-29); Chloride 102 mEq/L (98-107); Glucose 88 mg/dL (70-105); Osmolality,Calculated 293 (280-300); Potassium 3.2 mEq/L (3.5-5.1); Sodium 142 mEq/L (136-145); eGFR For African Americans > 60 (> 60); eGFR For Non-African Americans > 60 (> 60)
[2020-08-16] MEDS: *HR* Enoxaparin 40 MG/0.4 ML SYRINGE SQ SCH (06:23)
[2020-08-16] MEDS: Finasteride 5 MG TABLET PO SCH (08:32)
[2020-08-16] MEDS: amLODIPine 5 MG TABLET PO SCH ×2 (08:32→21:14)
[2020-08-16] MEDS: PARoxetine 20 MG TABLET PO SCH (08:32)
[2020-08-16] MEDS: Aspirin 81 MG TAB.CHEW PO SCH (08:32)
[2020-08-16] MEDS: *HR* Metformin 500 MG TABLET PO SCH ×2 (08:32→16:37)
[2020-08-16] MEDS ORDERED: hydrALAZINE 25 MG TABLET PO PRN (08:59)
[2020-08-16] MEDS: QUEtiapine Fumarate 25 MG TABLET PO SCH (21:14)
[2020-08-16] MEDS: Melatonin 3 MG TABLET PO PRN (21:17)
[2020-08-16] MEDS: *HR* HYDROcodone/Acet 5/325 mg TABLET PO PRN (21:17)
[2020-08-17] MEDS: *HR* Enoxaparin 40 MG/0.4 ML SYRINGE SQ SCH (06:21)
[2020-08-17] MEDS: *HR* Metformin 500 MG TABLET PO SCH ×2 (08:19→16:23)
[2020-08-17] MEDS: Finasteride 5 MG TABLET PO SCH (08:19)
[2020-08-17] MEDS: PARoxetine 20 MG TABLET PO SCH (08:20)
[2020-08-17] MEDS: amLODIPine 5 MG TABLET PO SCH ×2 (08:20→20:33)
[2020-08-17] MEDS: Aspirin 81 MG TAB.CHEW PO SCH (08:20)
[2020-08-17] MEDS: *HR* HYDROcodone/Acet 5/325 mg TABLET PO PRN ×2 (14:20→23:06)
[2020-08-17] MEDS: Melatonin 3 MG TABLET PO PRN (20:33)
[2020-08-17] MEDS: QUEtiapine Fumarate 25 MG TABLET PO SCH (20:33)
[2020-08-18] MEDS: *HR* Enoxaparin 40 MG/0.4 ML SYRINGE SQ SCH (06:21)
[2020-08-18] MEDS: PARoxetine 20 MG TABLET PO SCH (08:20)
[2020-08-18] MEDS: Finasteride 5 MG TABLET PO SCH (08:21)
[2020-08-18] MEDS: Aspirin 81 MG TAB.CHEW PO SCH (08:22)
[2020-08-18] MEDS: amLODIPine 5 MG TABLET PO SCH ×2 (08:22→20:58)
[2020-08-18] MEDS: *HR* Metformin 500 MG TABLET PO SCH ×2 (08:22→16:46)
[2020-08-18] MEDS: Melatonin 3 MG TABLET PO PRN (20:58)
[2020-08-18] MEDS: QUEtiapine Fumarate 25 MG TABLET PO SCH (20:58)
[2020-08-18] MEDS: *HR* HYDROcodone/Acet 5/325 mg TABLET PO PRN (20:58)
[2020-08-19] MEDS: *HR* Enoxaparin 40 MG/0.4 ML SYRINGE SQ SCH (06:59)
[2020-08-19] MEDS: Aspirin 81 MG TAB.CHEW PO SCH (08:55)
[2020-08-19] MEDS: Finasteride 5 MG TABLET PO SCH (08:55)
[2020-08-19] MEDS: amLODIPine 5 MG TABLET PO SCH ×2 (08:56→20:14)
[2020-08-19] MEDS: PARoxetine 20 MG TABLET PO SCH (08:56)
[2020-08-19] MEDS: *HR* Metformin 500 MG TABLET PO SCH ×2 (08:56→16:51)
[2020-08-19] MEDS: QUEtiapine Fumarate 25 MG TABLET PO SCH (20:14)
[2020-08-19] MEDS: Melatonin 3 MG TABLET PO PRN (20:19)
[2020-08-19] MEDS: *HR* HYDROcodone/Acet 5/325 mg TABLET PO PRN (20:19)
[2020-08-20] MEDS: *HR* Enoxaparin 40 MG/0.4 ML SYRINGE SQ SCH (05:39)
[2020-08-20] MEDS: *HR* Metformin 500 MG TABLET PO SCH ×2 (08:09→16:17)
[2020-08-20] MEDS: Finasteride 5 MG TABLET PO SCH (08:09)
[2020-08-20] MEDS: Aspirin 81 MG TAB.CHEW PO SCH (08:09)
[2020-08-20] MEDS: PARoxetine 20 MG TABLET PO SCH (08:09)
[2020-08-20] MEDS: amLODIPine 5 MG TABLET PO SCH ×2 (08:09→20:15)
[2020-08-20] MEDS: *HR* HYDROcodone/Acet 5/325 mg TABLET PO PRN ×2 (09:33→20:15)
[2020-08-20] MEDS: Acetaminophen 325 MG TABLET PO PRN (16:21)
[2020-08-20] MEDS: QUEtiapine Fumarate 25 MG TABLET PO SCH (20:15)
[2020-08-20] MEDS: Melatonin 3 MG TABLET PO PRN (20:15)
[2020-08-21] MEDS: *HR* Enoxaparin 40 MG/0.4 ML SYRINGE SQ SCH (05:19)
[2020-08-21] MEDS: *HR* Metformin 500 MG TABLET PO SCH ×2 (08:42→17:23)
[2020-08-21] MEDS: Aspirin 81 MG TAB.CHEW PO SCH (08:42)
[2020-08-21] MEDS: amLODIPine 5 MG TABLET PO SCH ×2 (08:43→19:32)
[2020-08-21] MEDS: Finasteride 5 MG TABLET PO SCH (08:43)
[2020-08-21] MEDS: PARoxetine 20 MG TABLET PO SCH (08:43)
[2020-08-21] MEDS: QUEtiapine Fumarate 25 MG TABLET PO SCH (19:33)
[2020-08-21] MEDS: *HR* HYDROcodone/Acet 5/325 mg TABLET PO PRN (19:33)
[2020-08-21] MEDS: Melatonin 3 MG TABLET PO PRN (19:33)
[2020-08-22] MEDS: *HR* HYDROcodone/Acet 5/325 mg TABLET PO PRN ×2 (06:17→14:52)
[2020-08-22] MEDS: *HR* Enoxaparin 40 MG/0.4 ML SYRINGE SQ SCH (06:18)
[2020-08-22] MEDS: amLODIPine 5 MG TABLET PO SCH ×2 (08:15→20:26)
[2020-08-22] MEDS: PARoxetine 20 MG TABLET PO SCH (08:15)
[2020-08-22] MEDS: Aspirin 81 MG TAB.CHEW PO SCH (08:16)
[2020-08-22] MEDS: *HR* Metformin 500 MG TABLET PO SCH ×2 (08:16→17:09)
[2020-08-22] MEDS: Finasteride 5 MG TABLET PO SCH (08:16)
[2020-08-22] MEDS: Acetaminophen 325 MG TABLET PO PRN ×2 (11:27→20:26)
[2020-08-22] MEDS: Melatonin 3 MG TABLET PO PRN (20:26)
[2020-08-22] MEDS: QUEtiapine Fumarate 25 MG TABLET PO SCH (20:26)
[2020-08-23] MEDS: *HR* Enoxaparin 40 MG/0.4 ML SYRINGE SQ SCH (06:33)
[2020-08-23] MEDS: *HR* HYDROcodone/Acet 5/325 mg TABLET PO PRN (06:33)
[2020-08-23 07:57] VITALS: BP 145/85
[2020-08-23] MEDS: Finasteride 5 MG TABLET PO SCH (08:05)
[2020-08-23] MEDS: Aspirin 81 MG TAB.CHEW PO SCH (08:05)
[2020-08-23] MEDS: *HR* Metformin 500 MG TABLET PO SCH (08:06)
[2020-08-23] MEDS: PARoxetine 20 MG TABLET PO SCH (08:06)
[2020-08-23] MEDS: amLODIPine 5 MG TABLET PO SCH (08:06)
== END 2020-08-23 14:30 | disposition home health service (06) | DRG 177 ==
LOC: INPPIK 12:17
PROVIDERS: ADMIT Family Medicine; ATTEND Family Medicine